=== PATIENT | male | born 1995 | race African-American/Black ===

== ENCOUNTER 2021-08-08 00:39 | Emergency (ER) | payer OTHER ==
[~2021-08-08] VITALS: Ht 180.3 cm; Wt 86.0 kg
[2021-08-08] MEDS ORDERED: AMOX500C PO (01:06)
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
[2021-08-08 01:28] VITALS: BP 138/80
[2021-08-08] MEDS ORDERED: oxyCODONE/APAP 5/325 1 TAB TABLET PO ONE (01:30)
[2021-08-08] MEDS ORDERED: IBUPROFEN 600 MG TABLET. PO ONE (01:30)
[2021-08-08] MEDS ORDERED: AMOXICILLIN 250 MG CAPSULE PO ONE (01:30)
== END 2021-08-08 01:30 | disposition home or self-care (01) ==
LOC: ER 00:39
DX: S01.511A Laceration without foreign body of lip, initial encounter (principal); K08.89 Other specified disorders of teeth and supporting structures; Y08.89XA Assault by other specified means, initial encounter; Y93.89 Activity, other specified; Y92.89 Other specified places as the place of occurrence of the external cause; Y99.8 Other external cause status
CPT/HCPCS: 99284

== ENCOUNTER 2021-08-26 10:51 | Emergency (ER) | payer OTHER ==
[~2021-08-26] VITALS: Ht 180.3 cm; Wt 86.0 kg
[~2021-08-26 10:51] MED LIST: AMOX500C PO
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
[2021-08-26] MEDS ORDERED: IV NORMAL SALINE 1,000ML 1,000 ML IV ONE (11:15)
[2021-08-26 11:39] LABS: BASO % 0 % (0-3); EOS % 1 % (0-3); HEMATOCRIT 39.9 % (39.0-53.0); HEMOGLOBIN 13.2 g/dL (13.0-17.5); LYMPH # 0.8 x10^3/uL (1.0-4.8); LYMPH % 12 % (24-48); MEAN CORPUSCULAR HEMOGLOBIN 30 pg (25-35); MEAN CORPUSCULAR HGB CONC 33 g/dL (31-37); MEAN CORPUSCULAR VOLUME 90 fL (79-100); MONO # 0.5 x10^3/uL (0.0-1.1); MONO % 7 % (0-9); NEUT # 5.4 x10^3uL (1.8-7.7); NEUT % 80 % (31-73); PLATELET COUNT 237 x10^3/uL (140-400); RED BLOOD COUNT 4.41 x10^6/uL (4.30-5.70); RED CELL DISTRIBUTION WIDTH 15.2 % (11.5-14.5); WHITE BLOOD COUNT 6.8 x10^3/uL (4.0-11.0)
[2021-08-26 11:47] LABS: CALCIUM 8.6 mg/dL (8.5-10.1); CREATININE 1.5 mg/dL (0.7-1.3); GFR 68.4; POTASSIUM 3.5 mmol/L (3.5-5.1)
[2021-08-26 11:53] LABS: ALBUMIN 3.6 g/dL (3.4-5.0); ALBUMIN/GLOBULIN RATIO 1.2 (1.0-1.7); TOTAL BILIRUBIN 0.2 mg/dL (0.2-1.0); TOTAL PROTEIN 6.7 g/dL (6.4-8.2)
[2021-08-26 12:08] LABS: BARBITURATES NEG (NEG); BENZODIAZEPINES NEG (NEG); CANNABINOIDS NEG (NEG); COCAINE NEG (NEG); METHADONE NEG (NEG); OPIATES NEG (NEG); PHENCYCLIDINE NEG (NEG)
[2021-08-26 12:15] LABS: BACTERIA,URINE 0 /HPF (0-FEW); CLARITY,URINE CLOUDY; COLOR,URINE YELLOW; GLUCOSE,URINE NEG (NEG); HYALINE CASTS, URINE OCC /HPF; NITRITE,URINE NEG (NEG); SQUAMOUS EPITHELIAL CELL,UR FEW /LPF; UROBILINOGEN,URINE 0.2 mg/dL (0.2 mg/dL)
[2021-08-26 12:23] LABS: AMPHETAMINE/METHAMPHETAMINE NEG (NEG)
--- NOTE | 2021-08-26 12:30 | EKG ---
[address] [address] Test Date: 2021-08-26 Test Time: 11:24:28 Pat Name: JANETH LIGHT Department: Room: Gender: M [employer]: MARIELA : 1995 Requested By: JULIO HUTTON Order Number: [id number] Reading MD: Ochoa Cruz Measurements Intervals [place] Rate: 96 P: 53 AR: 208 QRS: 14 QRSD: 96 T: 27 QT: 320 QTc: 405 Interpretive Statements SINUS RHYTHM PROLONGED AR INTERVAL NON SPECIFIC ST-T WAVE CHANGES Electronically Signed On 08-27-2021 18:12:29 CDT by Ochoa Cruz
[2021-08-26 13:17] VITALS: BP 125/56
== END 2021-08-26 13:27 | disposition home or self-care (01) ==
LOC: ER 10:51
DX: R41.82 Altered mental status, unspecified (principal)
CPT/HCPCS: 36415; 80053; 80307; 81001; 85025; 93005; 96360; 99284; J7030